=== PATIENT | male | born 1985 | race American Indian/Alaskan Native ===

== ENCOUNTER 2021-01-26 06:48 | Emergency (ER) | payer SELFPAY ==
[2021-01-26 06:56] VITALS: BP 170/80
[2021-01-26 08:26] LABS: Bilirubin,Urine NEG (Negative); Blood,Urine NEG (Negative); Color,Urine Yellow (Yellow); Mucus,Urine FEW /HPF; Protein,Urine <15 mg/dL mg/dL (Negative); WBC,Urine < 1.0 /HPF (0.0-6.0)
--- NOTE | 2021-01-26 09:41 | Emergency Department Report ---
ED General Adult HPI - General Chief complaint: Urogenital-Male Stated complaint: PAIN IN TESTICLE Time Seen by Provider: 01/26/21 09:24 Source: patient Mode of arrival: Ambulatory Limitations: No Limitations - History of Present Illness Initial comments: 35-year-old male patient presents emergency department with complaints of right testicular pain for 5 days. No preceding fall, trauma, or injury. No history of similar symptoms. Denies fever, chills, dysuria, hematuria, swelling, skin color changes, nausea, vomiting, diarrhea. Denies all other complaints at this time. - Related Data Previous Rx's Medication Instructions Recorded Last Taken Type Ibuprofen [Motrin] 800 mg PO Q8HR PRN #20 tablet 01/26/21 Unknown Rx Allergies Allergy/AdvReac Type Severity Reaction Status Date / Time Penicillins Allergy Hives Verified 01/26/21 06:53 ED Review of Systems ROS: Stated complaint: PAIN IN TESTICLE Other details as noted in HPI Other: GENERAL: Negative for fever. CARDIOVASCULAR: Negative for chest pain. PULMONARY: Negative for shortness of breath. GASTROINTESTINAL: Negative for abdominal pain. GENITOURINARY: Positive for testicular pain MUSCULOSKELETAL: Negative for back pain. NEUROLOGICAL: Negative for headache. INTEGUMENTARY: Negative for rash. ED Past Medical Hx - Past Medical History Previous Medical History?: Yes Additional medical history: scoliosis - Social History Smoking Status: Never Smoker - Medications Home Medications: Home Medications Medication Instructions Recorded Confirmed Last Taken Type Ibuprofen [Motrin] 800 mg PO Q8HR PRN #20 tablet 01/26/21 Unknown Rx ED Physical Exam - General Limitations: No Limitations - Other Other exam information: General: Awake, appropriately interactive, no acute distress. Neck: Supple. Full range of motion intact. Cardiovascular: Normal peripheral perfusion. Pulmonary: No respiratory distress. Patient is speaking normally without use of accessory muscles. Abdomen: Soft, nontender, nondistended. Genitourinary: Male [employer] (BRONSON Shah) present. Normal external inspection. No evidence of inguinal hernia. Patient reports pain to the right testicle without appreciable tenderness or swelling. No testicular asymmetry. No blood or discharge at the urethral meatus. No rashes or lesions. Skin: No apparent rashes or lesions. Neurological: No facial asymmetry. Speech is clear. Follows commands. Patient is alert and oriented. Musculoskeletal: Moves all four extremities spontaneously with normal range of motion. Psych: Cooperative. Appropriate mood and affect. ED Course Vital Signs 01/26/21 06:54 Temperature 98.0 F Pulse Rate 93 H Respiratory 16 Rate Blood Pressure 170/80 O2 Sat by Pulse 99 Oximetry ED Medical Decision Making - Radiology Data [facility] [address] [place] [address] Ultrasound Report Signed Patient: EDIN MCGEE MR#: [id number] : 1985 Acct:[id number] Age/Sex: 35 / M ADM Date: 01/26/21 Loc: ED Attending Dr: Ordering Physician: DAVID FRAZIER Date of Service: 01/26/21 Procedure(s): US testicular doppler comp Accession Number(s): [id number] cc: DAVID FRAZIER US testicular doppler comp INDICATION / CLINICAL INFORMATION: right testicular pain/swelling. COMPARISON: None available. FINDINGS -- RIGHT TESTIS: Size = 4.1 x 1.6 x 2.7 cm. - Appearance: No significant abnormality. - Cyst or Mass: None. - Color Doppler Flow: No significant abnormality. EPIDIDYMIS: No significant abnormality. HYDROCELE: None. VARICOCELE: None demonstrated. FINDINGS -- LEFT TESTIS: Size = 4.1 x 1.8 x 2.9 cm. - Appearance: No significant abnormality. - Cyst or Mass: None. - Color Doppler Flow: No significant abnormality. EPIDIDYMIS: No significant abnormality. HYDROCELE: Small VARICOCELE: None demonstrated. ADDITIONAL FINDINGS: None. IMPRESSION: 1. Small left hydrocele. Otherwise no significant abnormality. Signer Name: Steven Garcia MD Signed: 01/26/2021 10:39 AM Workstation Name: [id number] Transcribed By: Dictated By: Steven Garcia MD Electronically Authenticated By: Steven Garcia MD Signed Date/Time: 01/26/21 1039 DD/ 1038 TD/TT: - Medical Decision Making Differential diagnosis including but not limited to: testicular torsion, epididymitis, orchitis, hydrocele, spermatocele, hernia On reevaluation, patient is stable. Urinalysis is unremarkable. Testicular ultrasound shows left hydrocele without significant findings to explain patient's right testicular discomfort. There is no evidence of testicular torsion. No clinical indication for further diagnostic work-up on an emergent basis at this time. Patient will be discharged home with NSAIDs and referral to primary care provider for close outpatient follow-up. Patient expressed understanding and is agreeable to plan of care. Strict return precautions provided. Repeat exam is unremarkable and benign. History, exam, diagnostic testing, and current condition do not suggest worrisome pathology to warrant further testing, continued ED treatment, admission, or surgical evaluation at this point. Given the low probability of a significant medical illness, it would be more likely to result in harm than benefit to perform further testing at this stage. Discussed findings, presumptive diagnosis, need for follow-up and specific signs/symptoms that should prompt immediate return to the emergency department. Instructions were explained in detail to the patient in addition to giving written discharge information. Patient expressed understanding and was given the opportunity to ask questions, all of which were satisfactorily answered prior to discharge home. Critical care attestation.: If time is entered above; I have spent that time in minutes in the direct care of this critically ill patient, excluding procedure time. ED Disposition Clinical Impression: Hydrocele Qualifiers: Hydrocele type: unspecified Qualified Code(s): N43.3 - Hydrocele, unspecified Disposition: DC-01 TO HOME OR SELFCARE Is pt being admited?: No Does the pt Need Aspirin: No Condition: Stable Instructions: Hydrocele, Adult Additional Instructions: Take Tylenol every 4 hours and Motrin every 8 hours as needed for pain. Gradually advance physical activity slowly as tolerated. Follow-up with primary care provider this week. Call today to schedule an appointment. See referral information below. Return to the emergency department immediately for new or worsening symptoms. Specifically, return to the emergency department immediately for fever, worsening pain, swelling, difficulty using the bathroom, or any other concerns. Prescriptions: Ibuprofen [Motrin] 800 mg PO Q8HR PRN #20 tablet PRN Reason: Pain , Severe (7-10) Referrals: LOYDA PATEL MD [Primary Care Provider] - 3-5 Days PPOPY ARNOLD MD [Staff Physician] - 3-5 Days [facility] [Outside] - 3-5 Days [facility] [Outside] - 3-5 Days [facility] [Outside] - 3-5 Days [facility] [Provider Group] - 3-5 Days Time of Disposition: 10:59
--- NOTE | 2021-01-26 10:44 | Ultrasound Report ---
US testicular doppler comp INDICATION / CLINICAL INFORMATION: right testicular pain/swelling. COMPARISON: None available. FINDINGS -- RIGHT TESTIS: Size = 4.1 x 1.6 x 2.7 cm. - Appearance: No significant abnormality. - Cyst or Mass: None. - Color Doppler Flow: No significant abnormality. EPIDIDYMIS: No significant abnormality. HYDROCELE: None. VARICOCELE: None demonstrated. FINDINGS -- LEFT TESTIS: Size = 4.1 x 1.8 x 2.9 cm. - Appearance: No significant abnormality. - Cyst or Mass: None. - Color Doppler Flow: No significant abnormality. EPIDIDYMIS: No significant abnormality. HYDROCELE: Small VARICOCELE: None demonstrated. ADDITIONAL FINDINGS: None. IMPRESSION: 1. Small left hydrocele. Otherwise no significant abnormality. Signer Name: Steven Garcia MD Signed: 01/26/2021 10:39 AM Workstation Name: [email or web address] [id number]
== END 2021-01-26 11:34 | disposition home or self-care (01) ==
LOC: ED 06:48
DX: N43.3 Hydrocele, unspecified (principal); Z88.0 Allergy status to penicillin; Z79.899 Other long term (current) drug therapy
CPT/HCPCS: 81001; 93975; 99284